=== PATIENT | male | born 1955 | race Caucasian/White ===

== ENCOUNTER 2017-10-09 07:36 | Outpatient (CLI) | payer MEDICARE ==
[2017-10-09] VITALS (13 sets, daily range): BP systolic 73–131; BP diastolic 48–76
[~2017-10-09 07:36] MED LIST: DIAZ10TA PO; HYDR-565 PO; ZOLP5TAB2 PO
== END 2017-10-09 23:59 | disposition home or self-care (01) ==
LOC: CARD DIAG 07:36
PROVIDERS: ATTEND Internal Medicine Interventional Cardiology
DX: R55 Syncope and collapse (principal); R42 Dizziness and giddiness; F17.200 Nicotine dependence, unspecified, uncomplicated
CPT/HCPCS: 93660

== ENCOUNTER 2020-05-23 07:50 | Observation (INO) | payer MEDICARE, MEDICAID ==
[~2020-05-23] VITALS: Ht 182.9 cm; Wt 80.3 kg
[~2020-05-23 07:50] MED LIST changes: +HYDR-4353 PO; -HYDR-565 PO
--- NOTE | 2020-05-23 08:14 | NUR ---
PATIENT STATES HE IS HERE FOR GALL BLADDER SURGERY WITH DR. BAUM TODAY. STATES HE WAS INSTRUCTED TO REPORT TO ER.
[2020-05-23] MEDS ORDERED: morphine 4 MG/ML inj SYRINge IV ONE (08:15)
[2020-05-23] MEDS ORDERED: ondansetron/PF 4mg/2ml inj IV ONE (08:15)
[2020-05-23] MEDS ORDERED: piperacillin/tazo 3.375gm/50ml 50 ML IV ONE ×2 (08:15)
[2020-05-23 09:11] LABS: BASOPHILS # (AUTO) 0.1 X10'3 (0-0.2); EOSINOPHILS # (AUTO) 0.2 X10'3 (0-0.9); EOSINOPHILS % (AUTO) 2.9 % (0-6); HEMATOCRIT 47.8 % (42.0-52.0); HEMOGLOBIN 15.9 g/dl (14.0-17.9); LYMPHOCYTES # (AUTO) 1.1 X10'3 (1.1-4.8); LYMPHOCYTES % (AUTO) 14.3 % (21-51); MEAN CORPUSCULAR HEMOGLOBIN 30.1 PG (27.0-31.0); MEAN CORPUSCULAR HGB CONC 33.2 g/dL (33.0-36.5); MEAN CORPUSCULAR VOLUME 90.5 FL (78-98); MEAN PLATELET VOLUME 9.8 FL (7.4-10.4); MONOCYTES # (AUTO) 0.5 X10'3 (0-0.9); MONOCYTES % (AUTO) 6.9 % (2-12); NEUTROPHILS # (AUTO) 5.6 X10'3 (1.8-7.7); NEUTROPHILS % (AUTO) 74.9 % (42-75); PLATELET COUNT 211 X10'3 (140-440); RED BLOOD COUNT 5.28 X10'6 (4.70-6.10); RED CELL DISTRIBUTION WIDTH 14.2 % (11.5-14.5); WHITE BLOOD COUNT 7.5 X10'3 (4.5-11.0)
[2020-05-23 09:21] LABS: ALANINE AMINOTRANSFERASE 190 U/L (12-78); ALBUMIN 3.5 G/DL (3.4-5.0); ALBUMIN/GLOBULIN RATIO 0.9 (1.1-1.5); ALKALINE PHOSPHATASE 221 IU/L (46-116); ANION GAP 7 (8-16); ASPARTATE AMINO TRANSFERASE 64 U/L (10-37); BILIRUBIN,TOTAL 0.7 MG/DL (0.1-1.0); BLOOD UREA NITROGEN 15 MG/DL (7-18); BUN/CREATININE RATIO 17.4 (5.4-32.0); CALCIUM 9.1 MG/DL (8.5-10.1); CHLORIDE 106 MMOL/L (99-107); CREATININE 0.86 MG/DL (0.60-1.10); GLUCOSE 142 MG/DL (70-104); MAGNESIUM 2.2 MG/DL (1.5-2.4); POTASSIUM 3.9 MMOL/L (3.5-5.1); SODIUM 139 MMOL/L (135-145); TOTAL CARBON DIOXIDE 26.3 MMOL/L (24-32); TOTAL PROTEIN 7.3 G/DL (6.4-8.2); eGFR 89 ML/MIN
[2020-05-23] MEDS ORDERED: normal saline 1000ml 1,000 ML IV SCH (11:20)
[2020-05-23] MEDS ORDERED: INDOCYANINE GREEN 25 MG/10 ML VIAL IV STA (11:20)
[2020-05-23] MEDS ORDERED: cefazolin/dext.iso 2gm/100ml 100 ML IV ONE (11:20)
[2020-05-23] MEDS ORDERED: ceFAZolin 2gm in dextrose, iso 50 ML IV ONE (11:36)
[2020-05-23] MEDS ORDERED: METF-950 PO (12:44)
[2020-05-23] MEDS ORDERED: PANT20TA18 PO (12:44)
[2020-05-23] MEDS ORDERED: FLUT1BLS4 IH (12:44)
[2020-05-23] MEDS ORDERED: SUCR1TAB PO (12:44)
[2020-05-23] MEDS ORDERED: ALBU17AE26 IH (12:44)
[2020-05-23] MEDS ORDERED: METO100T14 PO (12:44)
[2020-05-23] MEDS ORDERED: CYCL-1 PO (12:44)
[2020-05-23] MEDS ORDERED: TRAZ-251 PO (12:44)
[2020-05-23] MEDS ORDERED: LIDOcaine 1% 30ml preserv. free vial ONE (13:23)
[2020-05-23] MEDS ORDERED: BUPIVAcaine/PF 2.5 mg/ml (0.25%) 30ml vial ONE (13:23)
[2020-05-23] MEDS ORDERED: ondansetron/PF 4mg/2ml inj IV PRN (13:40)
[2020-05-23] MEDS ORDERED: proCHLORperazine 10 MG/2 ml inj IV PRN (13:40)
[2020-05-23] MEDS ORDERED: meperidine/PF 25mg/ml syringe IV PRN ×3 (13:40)
[2020-05-23] MEDS ORDERED: hydrALAZINE 20mg/ml inj. IV PRN (13:40)
[2020-05-23] MEDS ORDERED: morphine 4 MG/ML inj SYRINge IV PRN (13:40)
[2020-05-23] MEDS ORDERED: labetalol 20mg/4ml (5mg/ml) syringe IV PRN (13:40)
[2020-05-23] MEDS ORDERED: ketorolac trometh. 30mg/ml inj. IV ONE (13:40)
[2020-05-23] MEDS ORDERED: morphine 2 MG/ML inj. syringe IV PRN (13:40)
[2020-05-23] MEDS ORDERED: ringers solution, lacted 1,000 ML IV SCH (13:40)
[2020-05-23] MEDS ORDERED: acetaminophen 1,000mg/100ml IV 100 ML IV PRN (13:40)
[2020-05-23] MEDS ORDERED: midazolam 2 mg/2 ml injection ONE (14:01)
[2020-05-23] MEDS ORDERED: fentaNYL /PF 50mcg/ml 5ml ampule ONE (14:01)
[2020-05-23] MEDS ORDERED: LIDOcaine 2% 5ml jelly ONE (14:04)
[2020-05-23] MEDS ORDERED: propofol inj 20 ML IV ONE (14:19)
[2020-05-23] MEDS ORDERED: ceFAZolin 1000mg inj ONE ×2 (14:19)
[2020-05-23] MEDS ORDERED: LIDOcaine 2% (20mg/ml) 5ml vial ONE (14:19)
[2020-05-23] MEDS ORDERED: dexamethasone sod phosphate 4mg/ml inj. ONE (14:19)
[2020-05-23] MEDS ORDERED: ondansetron/PF 4mg/2ml inj ONE (14:19)
[2020-05-23] MEDS ORDERED: rocuronium 10mg/ml inj IV ONE (14:19)
[2020-05-23] MEDS ORDERED: neostigmine methylsulfate 1 MG/ML 10ml vial ONE (15:29)
[2020-05-23] MEDS ORDERED: glycopyrrolate 0.2mg/ml inj ONE (15:29)
[2020-05-23 15:38] VITALS: BP 157/96
--- NOTE | 2020-05-23 15:38 | NUR ---
Received from OR via , accompanied by Anesthesiologist DR HERNÁNDEZ and report given by Anesthesiolgist. AWAKENS TO VOICE. VITALS STABLE. DRESSINGS DI. LYNDA PAIN. ABD SOFT.
[2020-05-23] MEDS ORDERED: oxyCODONE/APAP 5-325mg tablet PO PRN (15:40)
[2020-05-23] MEDS ORDERED: oxyCODONE/APAP 10/325mg tablet PO PRN (15:40)
[2020-05-23 15:48] VITALS: BP 161/84
[2020-05-23 15:58] VITALS: BP 155/90
[2020-05-23 16:08] VITALS: BP 156/92
[2020-05-23 16:18] VITALS: BP 160/88
[2020-05-23 16:28] VITALS: BP 154/90
--- NOTE | 2020-05-23 16:48 | NUR ---
AWAKE AND ORIENTED. VITALS STABLE. DRESSINGS DI. LYNDA PAIN. HOME WITH HIS MOTHER AT THIS TIME.
--- NOTE | 2020-05-24 12:36 | NUR ---
CASE MANAGEMENT DISCHARGE FOLLOW UP: Spoke with pt via telephone. Reports that he is "doing alright", having some difficulty swallowing but was advised this morning by another nurse that this is likely due to being vented during procedure, states that this is making it difficult for him to eat/drink; Advised pt to try lukewarm broth as that may be easier to swallow and will provide hydration and some nutrition, pt verbalizes understanding. Admits to some muscle cramps right lower ribs. Denies CP, fever/chills, N/V, dizziness, bleeding, s/sx of infection. Verbalizes understanding of s/sx requiring further evaluation/emergent assistance. Verbalizes understanding of new and current medications, states pain medication is helping a little with pain. Verbalizes compliance with MD discharge instructions. Verbalizes understanding of the importance in making/keeping follow-up appointments, states will contact Dr Xie in 1 week to set up f/u appt for the next week per Dr Xie's instructions. States no further questions/concerns at this time.
== END 2020-05-23 16:48 | disposition home or self-care (01) ==
LOC: ER 07:52 → ED HOLD 11:57
PROVIDERS: ADMIT Surgery; ATTEND Surgery
DX: K80.70 Calculus of gallbladder and bile duct without cholecystitis without obstruction (principal); Z20.822 Contact with and (suspected) exposure to COVID-19; J44.9 Chronic obstructive pulmonary disease, unspecified; I10 Essential (primary) hypertension; N40.0 Benign prostatic hyperplasia without lower urinary tract symptoms; G62.9 Polyneuropathy, unspecified; Z86.718 Personal history of other venous thrombosis and embolism; Z86.711 Personal history of pulmonary embolism; Z85.46 Personal history of malignant neoplasm of prostate; F17.200 Nicotine dependence, unspecified, uncomplicated; Z79.899 Other long term (current) drug therapy; Z88.8 Allergy status to other drugs, medicaments and biological substances
CPT/HCPCS: 36415; 47563; 71045; 80053; 83735; 84145; 85025; 86885; 86900; 86901; 87635; 96365; 96367; 96375; 99284; C9803; G0378; J0690; J1100; J2001; J2250; J2270; J2405; J2543; J2704; J2710; J3010; J3490; J7030; J7120; S2900; A4215; A4618; A7000

== ENCOUNTER 2020-07-08 06:28 | Emergency (ER) | payer MEDICARE, MEDICAID ==
[~2020-07-08] VITALS: Ht 182.9 cm; Wt 79.1 kg
[~2020-07-08 06:28] MED LIST changes: +ALBU17AE26 IH; +CYCL-1 PO; -DIAZ10TA PO; +FLUT1BLS4 IH; +HYDR-3972 PO; -HYDR-4353 PO; +METF-950 PO; +METO100T14 PO; +PANT20TA18 PO; +SUCR1TAB PO; +TRAZ-251 PO; -ZOLP5TAB2 PO
[2020-07-08] MEDS ORDERED: normal saline 1000ML IV soln IVB ONE (06:40)
[2020-07-08] MEDS ORDERED: ondansetron/PF 4mg/2ml inj IV ONE (06:40)
[2020-07-08] MEDS: morphine 4 MG/ML inj SYRINge IV PRN ×2 (07:05→07:45)
[2020-07-08 07:34] LABS: BASOPHILS # (AUTO) 0.1 X10'3 (0-0.2); BASOPHILS % (AUTO) 1.1 % (0-1); EOSINOPHILS # (AUTO) 0.3 X10'3 (0-0.9); EOSINOPHILS % (AUTO) 3.3 % (0-6); HEMATOCRIT 47.6 % (42.0-52.0); HEMOGLOBIN 15.9 g/dl (14.0-17.9); LYMPHOCYTES # (AUTO) 1.4 X10'3 (1.1-4.8); LYMPHOCYTES % (AUTO) 15.7 % (21-51); MEAN CORPUSCULAR HEMOGLOBIN 30.3 PG (27.0-31.0); MEAN CORPUSCULAR HGB CONC 33.5 g/dL (33.0-36.5); MEAN CORPUSCULAR VOLUME 90.6 FL (78-98); MONOCYTES # (AUTO) 0.6 X10'3 (0-0.9); MONOCYTES % (AUTO) 6.2 % (2-12); NEUTROPHILS # (AUTO) 6.6 X10'3 (1.8-7.7); NEUTROPHILS % (AUTO) 73.7 % (42-75); PLATELET COUNT 196 X10'3 (140-440); RED BLOOD COUNT 5.25 X10'6 (4.70-6.10); RED CELL DISTRIBUTION WIDTH 14.6 % (11.5-14.5); WHITE BLOOD COUNT 8.9 X10'3 (4.5-11.0)
[2020-07-08] MEDS ORDERED: ketorolac trometh. 30mg/ml inj. IV ONE (07:35)
[2020-07-08] MEDS ORDERED: ketorolac tromethamine 15mg/ml inj. IV ONE (07:35)
[2020-07-08 07:54] LABS: ALANINE AMINOTRANSFERASE 38 U/L (12-78); ALBUMIN 3.6 G/DL (3.4-5.0); ALKALINE PHOSPHATASE 107 IU/L (46-116); ANION GAP 12 (8-16); ASPARTATE AMINO TRANSFERASE 20 U/L (10-37); BILIRUBIN,TOTAL 0.4 MG/DL (0.1-1.0); BLOOD UREA NITROGEN 13 MG/DL (7-18); BUN/CREATININE RATIO 14.4 (5.4-32.0); CHLORIDE 108 MMOL/L (99-107); GLUCOSE 188 MG/DL (70-104); LIPASE 920 U/L (73-393); POTASSIUM 3.6 MMOL/L (3.5-5.1); SODIUM 144 MMOL/L (135-145); TOTAL CARBON DIOXIDE 24.1 MMOL/L (24-32); TOTAL PROTEIN 7.2 G/DL (6.4-8.2); eGFR 84 ML/MIN
[2020-07-08] MEDS ORDERED: iohexol 300mg/ml 100ml inj. ONE (08:08)
[2020-07-08 10:32] LABS: CLARITY,URINE CLEAR (Clear); COLOR,URINE YELLOW (Yellow); GLUCOSE, URINE NEGATIVE (Neg); KETONES,URINE NEGATIVE (Neg); LEUKOCYTE ESTERASE ,URINE NEGATIVE (Neg); NITRITES, URINE NEGATIVE (Neg); OCCULT BLOOD,URINE NEGATIVE (Neg); PH,URINE 5.5 (4.8-8.0); PROTEIN,URINE NEGATIVE (Neg); UROBILINOGEN,URINE 0.2 E.U/dL (0.2-1.0)
[2020-07-08 10:33] LABS: UA COLLECTION TYPE CLN CATCH MIDSTREAM
[2020-07-08 10:51] VITALS: BP 164/90
[2020-07-08] MEDS ORDERED: HYDR-3965 PO (11:17)
[2020-07-08] MEDS ORDERED: ONDA4TAB12 PO (11:17)
== END 2020-07-08 11:29 | disposition home or self-care (01) ==
LOC: ER 06:28
DX: K85.90 Acute pancreatitis without necrosis or infection, unspecified (principal); K21.9 Gastro-esophageal reflux disease without esophagitis; Z90.49 Acquired absence of other specified parts of digestive tract; Z88.8 Allergy status to other drugs, medicaments and biological substances; Z79.84 Long term (current) use of oral hypoglycemic drugs; Z79.899 Other long term (current) drug therapy
CPT/HCPCS: 36415; 74177; 80053; 81003; 83605; 83690; 84145; 85025; 96361; 96374; 96375; 96376; 99285; J1885; J2270; J2405; J7030; Q9967

== ENCOUNTER 2021-01-22 13:28 | Day surgery (SDC) | payer MEDICARE, MEDICAID ==
[~2021-01-22] VITALS: Ht 182.9 cm; Wt 68.1 kg
[2021-01-22 13:15] VITALS: BP 135/85
[~2021-01-22 13:28] MED LIST changes: +METF-1203 PO; -METF-950 PO; +ONDA4TAB12 PO
[2021-01-22] MEDS ORDERED: fentaNYL/PF 50MCG/1 ML 2ML syringe ONE (13:38)
[2021-01-22] MEDS ORDERED: LIDOcaine Viscous 15ml cup ONE (13:39)
[2021-01-22] MEDS ORDERED: diphenhydrAMINE 50 mg/ml inj ONE (13:39)
[2021-01-22] MEDS ORDERED: MIDAZolam 1 MG/ML 5ML VIAL ONE (13:39)
[2021-01-22] MEDS ORDERED: levoFLOXACIN-Levaquin 500mg/D5 100 ML IV ONE (13:39)
[2021-01-22] MEDS ORDERED: iohexol 300 MG/1 ML 50ml polymer ONE (13:40)
[2021-01-22] MEDS ORDERED: glucagon, human recombinant 1mg kit ONE (13:40)
[2021-01-22] MEDS ORDERED: APIX5TAB3 PO (14:04)
[2021-01-22] MEDS ORDERED: ONDA-104 PO (14:04)
[2021-01-22] MEDS ORDERED: PROC10TA10 PO (14:04)
[2021-01-22] MEDS ORDERED: MORP15TA (14:04)
[2021-01-22] MEDS ORDERED: LOPE-190 PO (14:05)
[2021-01-22] MEDS ORDERED: ondansetron/PF 4mg/2ml inj ONE (16:00)
[2021-01-22 16:35] VITALS: BP 130/80
[2021-01-22 16:45] VITALS: BP 145/99
[2021-01-22 16:55] VITALS: BP 135/63
[2021-01-22 17:05] VITALS: BP 141/70
[2021-01-22 17:15] VITALS: BP 129/88
== END 2021-01-22 17:30 | disposition home or self-care (01) ==
LOC: GI LAB 13:28
PROVIDERS: ATTEND Internal Medicine Gastroenterology
DX: Z46.59 Encounter for fitting and adjustment of other gastrointestinal appliance and device (principal); C25.0 Malignant neoplasm of head of pancreas; K83.1 Obstruction of bile duct; Z79.01 Long term (current) use of anticoagulants; Z79.899 Other long term (current) drug therapy
CPT/HCPCS: 43276; 74330; 99153; C1768; C1769; G0500; J1200; J1610; J1956; J2250; J2405; J3010; J7040; Q9967; Z7512; Z7610; 99152; A4620

== ENCOUNTER 2021-07-10 13:45 | Outpatient (CLI) | payer MEDICARE, MEDICAID ==
[~2021-07-10] VITALS: Ht 182.9 cm; Wt 65.3 kg
[~2021-07-10 13:45] MED LIST changes: +APIX5TAB3 PO; -HYDR-3972 PO; +LOPE-190 PO; -METF-1203 PO; +MORP15TA PO; +ONDA-104 PO; -ONDA4TAB12 PO; +PROC10TA10 PO; -SUCR1TAB PO
[2021-07-10 14:51] LABS: BASOPHILS % (AUTO) 0.6 % (0-1); EOSINOPHILS # (AUTO) 0.2 X10'3 (0-0.9); LYMPHOCYTES # (AUTO) 0.4 X10'3 (1.1-4.8); LYMPHOCYTES % (AUTO) 7.4 % (21-51); MEAN CORPUSCULAR HEMOGLOBIN 28.5 PG (27.0-31.0); MEAN CORPUSCULAR VOLUME 89.1 FL (78-98); MEAN PLATELET VOLUME 9.9 FL (7.4-10.4); MONOCYTES # (AUTO) 0.3 X10'3 (0-0.9); MONOCYTES % (AUTO) 7.2 % (2-12); NEUTROPHILS # (AUTO) 3.9 X10'3 (1.8-7.7); NEUTROPHILS % (AUTO) 79.8 % (42-75); PRE OP HEMATOCRIT 36.6 % (42.0-52.0); PRE OP HEMOGLOBIN 11.7 g/dL (14.0-17.9); RED BLOOD COUNT 4.11 X10'6 (4.70-6.10); RED CELL DISTRIBUTION WIDTH 18.7 % (11.5-14.5)
[2021-07-10 14:53] LABS: PRE OP PLATELET COUNT 100 X10'3 (140-440)
[2021-07-10] MEDS ORDERED: FURO-150 PO (14:56)
[2021-07-10] MEDS ORDERED: FAMO20TA47 PO (14:56)
[2021-07-10] MEDS ORDERED: FLUT1BLS4 INH (14:56)
[2021-07-10] MEDS ORDERED: POLY17PO10 PO (14:56)
[2021-07-10] MEDS ORDERED: LOP12.5T PO (14:56)
[2021-07-10] MEDS ORDERED: GUAI600T45 PO (14:56)
[2021-07-10] MEDS ORDERED: BACL-11 PO (14:56)
[2021-07-10] MEDS ORDERED: METF-436 PO (14:56)
[2021-07-10] MEDS ORDERED: SERT50TA PO (14:56)
[2021-07-10] MEDS ORDERED: POTA-207 PO (14:56)
[2021-07-10 15:00] LABS: ALBUMIN 2.7 G/DL (3.4-5.0); ALBUMIN/GLOBULIN RATIO 0.7 (1.1-1.5); ALKALINE PHOSPHATASE 110 IU/L (46-116); BLOOD UREA NITROGEN 15 MG/DL (7-18); BUN/CREATININE RATIO 15.8 (5.4-32.0); CHLORIDE 107 MMOL/L (99-107); CREATININE 0.95 MG/DL (0.60-1.10); PRE OP ALT 19 U/L (30-65); PRE OP ANION GAP 8 (8-16); PRE OP AST 18 U/L (10-37); PRE OP BILIRUB, TOTAL 0.4 MG/DL (0.0-1.0); PRE OP GLUCOSE 122 MG/DL (70-104); PRE OP POTASSIUM 3.7 MMOL/L (3.4-5.1); PRE OP SODIUM 145 MMOL/L (135-145); TOTAL CARBON DIOXIDE 29.9 MMOL/L (24-32); TOTAL PROTEIN 6.4 G/DL (6.4-8.2); eGFR 79 ML/MIN
[2021-07-10 15:15] LABS: PRE OP INR 1.1 INR; PRE OP PROTIME 11.3 SECONDS (9.0-12.0)
[2021-07-10 15:18] LABS: ANISOCYTOSIS 2+; PLATELET ESTIMATE DECREASED
[2021-07-12] MEDS ORDERED: ringers solution, lacted 1,000 ML IV SCH (05:00)
[2021-07-12] MEDS ORDERED: famotidine 20mg tablet PO ONE (05:30)
[2021-07-12] MEDS ORDERED: DOCUMENT DATE & TIME OF BETA-BLOCKER PO ONE (05:30)
[2021-07-12] MEDS ORDERED: cefazolin/dext.iso 2gm/50ml IV ONE (05:30)
[2021-07-12] MEDS ORDERED: BUPIVAcaine 0.5% inj/PF 0 ML ONE (07:04)
[2021-07-12] MEDS ORDERED: LIDOcaine 1% 30ml preserv. free vial ONE (07:04)
== END 2021-07-10 23:59 | disposition home or self-care (01) ==
LOC: LAB 13:45 → EDSTATUS 07-12 13:45
PROVIDERS: ATTEND Surgery
DX: Z01.818 Encounter for other preprocedural examination (principal); K40.90 Unilateral inguinal hernia, without obstruction or gangrene, not specified as recurrent; J44.9 Chronic obstructive pulmonary disease, unspecified; F32.A Depression, unspecified; I10 Essential (primary) hypertension; K21.9 Gastro-esophageal reflux disease without esophagitis; Z20.822 Contact with and (suspected) exposure to COVID-19; Z85.46 Personal history of malignant neoplasm of prostate; Z79.899 Other long term (current) drug therapy; Z85.07 Personal history of malignant neoplasm of pancreas; Z79.01 Long term (current) use of anticoagulants
CPT/HCPCS: 36415; 71046; 80053; 85025; 85610; 85730; 87635; C9803; 85008; J3490; J7120; S0020